=== PATIENT | female | born 1960 | race African-American/Black ===

== ENCOUNTER 2021-02-07 12:12 | Day surgery (SDC) | payer OTHER ==
[2021-02-06 15:14] VITALS: BMI 35.4
[2021-02-07 14:39] VITALS: PULSE 78; TEMP 98.2
[2021-02-07 15:04] VITALS: BP 118/71
== END 2021-02-07 15:25 | disposition home or self-care (01) ==
LOC: FASU-ENDO 12:12
PROVIDERS: ATTEND Internal Medicine Gastroenterology
PROC: 0DB78ZX Excision of Stomach, Pylorus, Via Natural or Artificial Opening Endoscopic, Diagnostic (ICD-10-PCS; 2021-02-07)
PROC: 0DB48ZX Excision of Esophagogastric Junction, Via Natural or Artificial Opening Endoscopic, Diagnostic (ICD-10-PCS; 2021-02-07)
PROC: 0DB98ZX Excision of Duodenum, Via Natural or Artificial Opening Endoscopic, Diagnostic (ICD-10-PCS; principal; 2021-02-07 14:14)
DX: K31.89 Other diseases of stomach and duodenum (principal); K22.8 Other specified diseases of esophagus
CPT/HCPCS: 88305-TC; 88342-TC